=== PATIENT | male | born 1985 | race African-American/Black ===

== ENCOUNTER 2024-08-09 08:11 | Inpatient (IN) | payer MEDICAID, OTHER ==
[~2024-08-09] VITALS: Ht 170.2 cm; Wt 90.9 kg
[~2024-08-09 08:11] MED LIST: ARIP5TAB37 PO; ESCI20TA87 PO; NOCURR
[2024-08-09] MEDS: LORazepam 2 MG/ML VIAL IM ONE ×3 (08:38→22:43)
[2024-08-09] MEDS: DiphenhydrAMINE HCL 50 MG/ML VIAL IM ONE ×3 (08:38→22:43)
[2024-08-09] MEDS: HALOPERIDOL LACTATE 5 MG/ML VIAL IM ONE ×3 (08:39→22:43)
[2024-08-09 09:34] LABS: BASOPHILS % (AUTO) 0.5 % (0.0-2.0); EOSINOPHILS % (AUTO) 0.5 % (1.0-6.0); HEMATOCRIT 45.3 % (41-53); HEMOGLOBIN 14.7 g/dL (13.5-17.5); LYMPHOCYTES % (AUTO) 29.7 % (22.0-44.0); MEAN CORPUSCULAR HEMOGLOBIN 26.8 pg (26.0-34.0); MEAN CORPUSCULAR HGB CONC 32.4 G/dL (31.0-37.0); MEAN CORPUSCULAR VOLUME 83 fL (80-100); MONOCYTES # (AUTO) 0.6 K/uL (0.1-1.0); MONOCYTES % (AUTO) 8.7 % (2.0-9.0); NEUTROPHILS % (AUTO) 60.6 % (40.0-70.0); PLATELET COUNT (AUTO) 259 K/uL (150-450); RED BLOOD CELL COUNT(AUTO) 5.48 MIL/uL (4.50-5.90); RED CELL DISTRIBUTION WIDTH 14.3 % (11.5-14.5); WHITE BLOOD COUNT (AUTO) 6.6 K/uL (4.5-11.0)
[2024-08-09] MEDS ORDERED: LORazepam 2 MG TABLET PO PRN (09:45)
[2024-08-09] MEDS ORDERED: haloperidoL 5 MG TABLET PO PRN (09:45)
[2024-08-09 09:52] LABS: ANION GAP 7 mmol/L (8-16); CALCIUM, TOTAL 9.2 mg/dL (8.8-10.5); CARBON DIOXIDE 30 mmol/L (22-29); CHLORIDE 106 mmol/L (98-107); CREATININE 1.03 mg/dL (0.60-1.30); GLOMERULAR FILTR. RATE CALC > 60 mL/min (>60); GLUCOSE,RANDOM 91 mg/dL (70-110); POTASSIUM 4.1 mmol/L (3.5-5.1); SODIUM SERUM 143 mmol/L (136-145); UREA NITROGEN, BLOOD 16 mg/dL (7-18)
[2024-08-09 09:54] VITALS: TEMP 97.7
[2024-08-09 09:55] LABS: COVID AG,FIA SOURCE NASAL SWAB
[2024-08-09 10:12] LABS: ALCOHOL, BLOOD (SERUM) < 3 mg/dL (0-10)
[2024-08-09 10:19] LABS: SARS-COV2 (COVID) ANTIGEN,FIA Negative (Negative)
[2024-08-09 12:57] LABS: APPEARANCE,URINE CLEAR (CLEAR); BILIRUBIN,URINE NEGATIVE (NEGATIVE); COLOR,URINE COLORLESS (YELLOW); GLUCOSE, URINE (UA) NEGATIVE (NEGATIVE); KETONES,URINE NEGATIVE (NEGATIVE); LEUKOCYTE ESTERASE ,URINE TRACE (NEGATIVE); NITRATE,URINE NEGATIVE (NEGATIVE); OCCULT BLOOD,URINE NEGATIVE (NEGATIVE); PROTEIN,URINE NEGATIVE (NEGATIVE); UROBILINOGEN,URINE <=1.0 mg/dL (<=1.0)
[2024-08-09 13:03] LABS: ALCOHOL, URINE DRUG SCREEN NEGATIVE (NEGATIVE); AMPHET/METH SCREEN,URINE NEGATIVE (NEGATIVE); BARBITURATE SCREEN, URINE NEGATIVE (NEGATIVE); BENZODIAZEPINES SCREEN,URINE NEGATIVE (NEGATIVE); CANNABINOID SCREEN,URINE NEGATIVE (NEGATIVE); COCAINE SCREEN,URINE NEGATIVE (NEGATIVE); METHADONE SCREEN, URINE NEGATIVE (NEGATIVE); OPIATE SCREEN,URINE NEGATIVE (NEGATIVE); PHENCYCLIDINE SCREEN,URINE NEGATIVE (NEGATIVE)
[2024-08-09 13:15] LABS: BACTERIA,URINE None Seen /HPF (None Seen); RBC,URINE None Seen /HPF (0-2); WBC,URINE 0-2 /HPF (0-5)
[2024-08-09] MEDS: ZIPRASIDONE MESYLATE 20 MG/VIAL IM ONE (13:45)
[2024-08-09] MEDS: ChlorproMAZINE HCL 50 MG/2 ML AMP IM ONE (18:04)
[2024-08-10 03:46] VITALS: BP 154/94; PULSE 78; O2SAT 96
[2024-08-10 08:17] VITALS: RESP 17
[2024-08-10] MEDS: ARIPiprazole 15 MG TABLET PO SCH (14:15)
[2024-08-10 14:50] VITALS: RESP 18
[2024-08-10] MEDS ORDERED: ACETAMINOPHEN 325 MG TABLET PO PRN (21:15)
[2024-08-10] MEDS ORDERED: IBUPROFEN 600 MG TABLET PO PRN (21:15)
[2024-08-10] MEDS ORDERED: MAG HYDROX/ALUMINUM HYD/SIMETH ES 30 ML SUSPENSION UDCUP PO PRN (21:15)
[2024-08-10] MEDS ORDERED: DOCUSATE SODIUM 100 MG CAPSULE PO PRN (21:15)
[2024-08-10] MEDS ORDERED: BENZOCAINE/MENTHOL [CEPACOL] LOZENGE PO PRN (21:15)
[2024-08-10] MEDS ORDERED: PETROLATUM,WHITE 28 GM JELLY TP PRN (21:15)
[2024-08-10] MEDS ORDERED: OMEPRAZOLE 20 MG CAPSULE PO PRN (21:15)
[2024-08-10] MEDS ORDERED: BACITRACIN 28 GM OINTMENT TP PRN (21:15)
[2024-08-10] MEDS ORDERED: MAGNESIUM HYDROXIDE SUSPENSION 30 ML UDCUP PO PRN (21:15)
[2024-08-10] MEDS ORDERED: ONDANSETRON 4 MG TABLET PO PRN (21:15)
[2024-08-10] MEDS ORDERED: ALBUTEROL SULFATE HFA 90 MCG/PUFF 8 GM INHALER IH PRN (21:15)
[2024-08-10] MEDS ORDERED: LOPERAMIDE HCL 2 MG CAPSULE PO PRN (21:15)
[2024-08-10] MEDS ORDERED: CloNIDine HCL 0.1 MG TABLET PO PRN (21:15)
[2024-08-11] MEDS ORDERED: DiphenhydrAMINE HCL 50 MG/ML VIAL ONE (08:00)
[2024-08-11] MEDS ORDERED: LORazepam 2 MG/ML VIAL ONE (08:00)
[2024-08-11] MEDS ORDERED: HALOPERIDOL LACTATE 5 MG/ML VIAL ONE (08:01)
[2024-08-11] MEDS: HALOPERIDOL LACTATE 5 MG/ML VIAL IM ONE (08:59)
[2024-08-11] MEDS: DiphenhydrAMINE HCL 50 MG/ML VIAL IM ONE (08:59)
[2024-08-11] MEDS: LORazepam 2 MG/ML VIAL IM ONE (08:59)
[2024-08-11 11:06] VITALS: RESP 16
[2024-08-11 20:25] VITALS: RESP 16
[2024-08-12 09:58] VITALS: RESP 17
[2024-08-12 20:16] VITALS: RESP 18
[2024-08-12] MEDS: ZOLPIDEM TARTRATE 10 MG TABLET PO PRN (20:35)
[2024-08-13 08:37] VITALS: RESP 18
[2024-08-13 20:18] VITALS: RESP 18
[2024-08-14 12:57] VITALS: RESP 17
[2024-08-14] MEDS ORDERED: LORazepam 2 MG/ML VIAL ONE (13:41)
[2024-08-14] MEDS ORDERED: HALOPERIDOL LACTATE 5 MG/ML VIAL ONE (13:41)
[2024-08-14] MEDS ORDERED: DiphenhydrAMINE HCL 50 MG/ML VIAL ONE (13:41)
[2024-08-14] MEDS: LORazepam 2 MG/ML VIAL IM ONE (14:03)
[2024-08-14] MEDS: DiphenhydrAMINE HCL 50 MG/ML VIAL IM ONE (14:04)
[2024-08-14] MEDS: HALOPERIDOL LACTATE 5 MG/ML VIAL IM ONE (14:04)
[2024-08-14 20:21] VITALS: RESP 18
[2024-08-15 08:03] VITALS: RESP 18
== END 2024-08-15 12:18 | disposition left against medical advice (07) | DRG 750 ==
LOC: EMS 08:15 → B3A 08-10 02:31
PROVIDERS: ADMIT Psychiatry & Neurology Psychiatry; ATTEND Psychiatry & Neurology Psychiatry
PROC: GZ52ZZZ Individual Psychotherapy, Cognitive (ICD-10-PCS; principal; 2024-08-14)
DX: F20.9 Schizophrenia, unspecified (principal); Z91.148 Patient's other noncompliance with medication regimen for other reason; F32.A Depression, unspecified; G47.00 Insomnia, unspecified; F41.9 Anxiety disorder, unspecified; Z20.822 Contact with and (suspected) exposure to COVID-19; K59.00 Constipation, unspecified; Z72.0 Tobacco use; Z79.899 Other long term (current) drug therapy; Z53.29 Procedure and treatment not carried out because of patient's decision for other reasons
CPT/HCPCS: 80048; 80307; 81001; 85025; G0480; J1200; J1630; J2060; J3230; J3486